=== PATIENT | female | born 1960 | race Caucasian/White ===

== ENCOUNTER → 2020-08-11 14:49 | Outpatient (CLI) | payer OTHER, SELFPAY ==
--- NOTE | 2020-08-11 | DI.ECHO.S_ITS ---
[facility]---------+ [facility] +---------+ : : [address] : [place] : : : : [id number] : : : : Phone: [phone] +---------+ Echocardiogram Report + + :Name: JULIO CRAWFORD Study Date: 08/11/2020 Height: 65 in : :[facility] ReadingLocation: Weight: 96 lb : : Gender: Female BSA: 1.4 m2 : :: 1960 Age: 60 yrs BP: 122/70 mmHg: :Reason For Study: CHRONIC SYSTOLIC HEART FAILURE : :Ordering Physician: DASHA, : :MICHAEL Performed By: Mona Monroe : :Referring: MICHAEL LOU : + + Interpretation Summary The left ventricle is moderately dilated. The ejection fraction is estimated to be 20-25%. No significant change in LVEF from the previous study. The right ventricle is normal size. Right ventricular systolic function is mildly reduced. There is severe mitral regurgitation. Severe mitral regurgitation. Mostly central regurgitation jet. Flow reversal noted in pulmonary veins consistent with significant mitral regurgitation. Mitral regurgitation appears to be secondary due to underlying dilated cardiomyopathy. No obvious mitral valve prolapse or flail leaflets seen. Compared to the prior echo study, there has been no change in the severity of mitral regurgitation. There is mild tricuspid regurgitation. Compared to the prior echo exam, there has been no change in TR severity. The right ventricular systolic pressure is estimated to be at least 28 mmHg based on an estimated right atrial pressure of 3 mm Hg. Procedure: A two-dimensional transthoracic echocardiogram with color flow and Doppler was performed in limited views only to assess ejection fraction, mitral regurgitation, pap and cvp.. The study quality was technically adequate. Comparison is made with the echocardiogram of 04/07/2020. The patient was in sinus rhythm with heart rates between 68-88 bpm during the exam. The patient had occasional PVCs during the exam. Left Ventricle: The left ventricle is moderately dilated. There is normal left ventricular wall thickness. There is no thrombus. The ejection fraction is estimated to be 20-25%. There has been no significant change since the previous exam. There is moderate to severe global hypokinesis of the left ventricle. Compared to the prior exam, the left ventricular wall motion has not changed. Right Ventricle: The right ventricle is normal size. Right ventricular systolic function is mildly reduced. This is unchanged compared to the previous study. Atria: The left atrium is severely dilated. There has been no significant change since the previous study. Right atrial size is normal. The right atrium has significantly decreased in size since the prior echo exam. Mitral Valve: The mitral valve leaflets appear borderline thickened, but open well. Tented mitral leaflets. There is severe mitral regurgitation. There are multiple regurgitant jets present. Flow reversal noted in pulmonary veins consistent with significant mitral regurgitation. Compared to the prior echo study, there has been no change in the severity of mitral regurgitation. Tricuspid Valve: The tricuspid valve is normal. There is mild tricuspid regurgitation. The right ventricular systolic pressure is estimated to be at least 28 mmHg based on an estimated right atrial pressure of 3 mm Hg. Compared to the prior echo exam, there has been no change in TR severity. Great Vessels: The IVC is of normal diameter and collapses greater than 50% with a sniff. This suggests a low right atrial pressure of 3 mm Hg. Pericardium/ Pleura There is no pericardial effusion. MMode/2D Measurements & Calculations LVIDd: 5.8 cm LA A2 area: 19.4 cm2 LVIDs: 5.1 cm LA A4 area: 21.9 cm2 FS: 11.9 % LA length (vol): 5.5 cm IVSd: 0.63 cm LA vol: 65.8 ml LVPWd: 0.83 cm LA vol index: 45.5 ml/m2 LV dye. diameter/BSA (cm/m^2): 4.0 LV sys. diameter/BSA (cm/m^2): 3.5 RA long axis: 4.1 cm RVD1 (basal): 2.3 cm RA area: 10.1 cm2 TAPSE: 1.6 cm RA vol: 21.5 ml RA : 14.9 ml/m2 IVC diam: 1.2 cm Doppler Measurements & Calculations MR ERO: 0.15 cm2 TR max josé miguel: 252.0 cm/sec TR max P.4 mmHg MR PISA: 2.4 cm2 MR flow rate: 83.3 cm3/sec MR PISA radius: 0.61 cm Reading Physician:04:12 PM
== END ==
PROVIDERS: PCP Internal Medicine; Referring Provider Internal Medicine Cardiovascular Disease; Visit Provider Internal Medicine Cardiovascular Disease
DX: I50.22 Chronic systolic (congestive) heart failure (principal)
CPT/HCPCS: 93307

== ENCOUNTER → 2021-05-13 13:00 | Outpatient (CLI) | payer OTHER, SELFPAY ==
--- NOTE | 2021-05-13 | DI.ECHO.S_ITS ---
[facility]---------+ [facility] +---------+ : : [address] : [place] [address] : : : : [id number] : : : : Phone: [phone] +---------+ Echocardiogram Report + + :Name: JULIO CRAWFORD Study Date: 05/13/2021 Height: 65 in : :[facility] : Weight: 93 lb : : Gender: Female BSA: 1.4 m2 : :: 1960 Age: 60 yrs BP: 104/60 mmHg: :Reason For Study: Chronic systolic congestive heart failure : :Ordering Physician: Michael : :Rudy Lou Performed By: Po Layton : :Referring: MICHAEL LOU : + + Interpretation Summary The left ventricle is normal in size and wall thickness. The ejection fraction is estimated to be 35-40%. Previous LV ejection fraction 20 to 25% with LV end-diastolic dimension 5.8 cm. In this study is 4.4 cm. The right ventricle is normal size. There is a pacemaker lead in the right ventricle. Patient has BiV AICD which is new. Right ventricular systolic function is borderline reduced. There is moderate to severe mitral regurgitation. Flow reversal noted in pulmonary veins consistent with significant mitral regurgitation. Compared to the prior echo study, there has been no significant change in the severity of mitral regurgitation. The right ventricular systolic pressure is estimated to be at least 24 mmHg based on an estimated right atrial pressure of 3 mm Hg. Procedure: A two-dimensional transthoracic echocardiogram with color flow and Doppler was performed. The study quality was technically adequate. Comparison is made with the echocardiogram of 08/11/2020. The patient has a paced rhythm. The patient was in normal sinus rhythm during the exam. The patient had occasional PVCs during the exam. Left Ventricle: The left ventricle is normal in size and wall thickness. There is no thrombus. The ejection fraction is estimated to be 35-40%. There is moderate global hypokinesis of the left ventricle. Right Ventricle: There is a pacemaker lead in the right ventricle. The right ventricle is normal size. Right ventricular systolic function is borderline reduced. Atria: The left atrium is severely dilated. The left atrium has remained unchanged in size since the prior echo exam. There is a catheter/pacemaker lead seen in the right atrium. Right atrial size is normal. There is no Doppler evidence for an interatrial shunt. Mitral Valve: The mitral valve leaflets appear mildly thickened, but open well. There is moderate to severe mitral regurgitation. Flow reversal noted in pulmonary veins consistent with significant mitral regurgitation. Compared to the prior echo study, there has been no change in the severity of mitral regurgitation. Aortic Valve: The aortic valve is trileaflet. The aortic valve opens well. The aortic valve is slightly calcified. There is no aortic valve stenosis. There is trace aortic regurgitation. Tricuspid Valve: The tricuspid valve is normal. There is trace tricuspid regurgitation. The right ventricular systolic pressure is estimated to be at least 24 mmHg based on an estimated right atrial pressure of 3 mm Hg. Compared to the prior echo exam, there has been a decrease in TR severity. Compared to the prior echo exam, there has been no change in the severity of pulmonary hypertension. Pulmonic Valve: The pulmonic valve is not well seen, but is grossly normal. There is a trace or physiologic amount of pulmonic regurgitation. Great Vessels: The aortic root is normal size. The ascending aorta could not be visualized. The aortic arch is normal in size. The IVC is of normal diameter and collapses greater than 50% with a sniff. This suggests a low right atrial pressure of 3 mm Hg. Pericardium/ Pleura There is no pericardial effusion. There is an anterior echo-free space consistent with a fat pad. There is no pleural effusion. MMode/2D Measurements & Calculations LVIDd: 4.4 cm LVOT diam: 1.8 cm LVIDs: 3.4 cm Ao root diam: 2.8 cm FS: 22.0 % Ao Arch Diam (Prox Trans): 2.0 cm IVSd: 0.77 cm LVPWd: 0.88 cm LV dye. diameter/BSA (cm/m^2): 3.1 LV sys. diameter/BSA (cm/m^2): 2.4 LA A2 area: 21.7 cm2 RA long axis: 4.4 cm LA A4 area: 18.7 cm2 RA area: 10.5 cm2 LA length (vol): 5.1 cm RA vol: 21.0 ml LA vol: 67.7 ml RA : 14.7 ml/m2 LA vol index: 47.4 ml/m2 IVC diam: 1.8 cm TAPSE: 1.7 cm Doppler Measurements & Calculations Ao V2 max: 126.9 cm/sec LVOT Max Boyd: 80.0 cm/sec Ao V2 mean: 99.5 cm/sec LV V1 max P.6 mmHg Ao max P.4 mmHg LV V1 VTI: 16.4 cm Ao mean P.2 mmHg JOSE(I,D): 1.5 cm2 Ao V2 VTI: 27.3 cm JOSE(V,D): 1.6 cm2 sev ratio: 0.60 JOSE indexed to BSA (cm^2/m^2): 1.0 MV E max boyd: 98.1 cm/sec TR max boyd: 228.9 cm/sec MV A max boyd: 99.4 cm/sec TR max P.0 mmHg MV E/A: 0.99 PA V2 max: 57.3 cm/sec MV dec time: 0.27 sec PA V2 mean: 46.1 cm/sec PA mean P.89 mmHg PA pr(Accel): 10.5 mmHg SV(LVOT): 40.8 ml Reading Physician:09:10 AM
== END ==
PROVIDERS: PCP Internal Medicine; Referring Provider Internal Medicine Cardiovascular Disease; Visit Provider Internal Medicine Cardiovascular Disease
DX: I34.0 Nonrheumatic mitral (valve) insufficiency (principal); I50.22 Chronic systolic (congestive) heart failure; Z95.0 Presence of cardiac pacemaker
CPT/HCPCS: 93306

== ENCOUNTER → 2023-08-17 14:38 | Outpatient (CLI) | payer OTHER, SELFPAY ==
--- NOTE | 2023-08-17 | DI.ECHO.S_ITS ---
[place] +---------+ [facility] : : [address] : : [place] : : [id number] : : Phone: [phone] Echocardiogram Report + + :Name: JULIO RCAWFORD Study Date: 08/17/2023 Height: 65 in : :[facility] ReadingLocation: Weight: 92 lb : : Gender: Female BSA: 1.4 m2 : :: 1960 Age: 63 yrs BP: 119/54 mmHg: :Reason For Study: DILATED CARDIOMYOPATHY : :Ordering Physician: JAMMIE, : :GUS Parsons Performed By: Buck Pugh : :Referring: GUS AGUDELO : + + Interpretation Summary The left ventricle is normal in size and wall thickness. Left ventricular ejection fraction is estimated to be 40 +/- 5%. Previously 35 to 40%. The right ventricle is normal in size and function. There is a pacemaker lead in the right ventricle. There is moderate mitral regurgitation. Previously moderate to severe MR. The right ventricular systolic pressure is estimated to be at least 29 mmHg based on an estimated right atrial pressure of 3 mm Hg. Procedure: A two-dimensional transthoracic echocardiogram with color flow and Doppler was performed. The study quality was technically adequate. Comparison is made with the echocardiogram of 05/13/2021. The patient was in normal sinus rhythm during the exam. The heart rate ranged between 68-83 bpm during the study. Left Ventricle: The left ventricle is normal in size and wall thickness. There is no thrombus. Left ventricular ejection fraction is estimated to be 40 +/- 5%. There is mild to moderate global hypokinesis of the left ventricle. Diastolic parameters suggest a relaxation abnormality of the left ventricle, consistent with probable normal filling pressures. Right Ventricle: The right ventricle is normal in size and function. There is a pacemaker lead in the right ventricle. The right ventricular systolic function is normal. Atria: The left atrium is mildly dilated. The left atrium has mildly decreased in size since the prior echo exam. Right atrial size is normal. The interatrial septum grossly appears intact with no obvious evidence for an atrial septal defect. Mitral Valve: The mitral valve leaflets appear mildly thickened, but open well. There is no mitral valve stenosis. There is moderate mitral regurgitation. There are multiple regurgitant jets present. Aortic Valve: The aortic valve is grossly normal. The aortic valve is trileaflet. The aortic valve opens well. The aortic valve is slightly calcified. There is no aortic valve stenosis. No aortic regurgitation is present. Tricuspid Valve: There is no tricuspid stenosis. The right ventricular systolic pressure is estimated to be at least 29 mmHg based on an estimated right atrial pressure of 3 mm Hg. There is trace tricuspid regurgitation. Compared to the prior echo exam, there has been no change in TR severity. Pulmonic Valve: The pulmonic valve is not well visualized. There is no pulmonic valvular stenosis. There is no pulmonic valvular regurgitation. Great Vessels: The aortic root is normal size. The ascending aorta could not be visualized. The aortic arch could not be visualized. The IVC is of normal diameter and collapses greater than 50% with a sniff. This suggests a low right atrial pressure of 3 mm Hg. Pericardium/ Pleura There is no pericardial effusion. There is no pleural effusion. MMode/2D Measurements & Calculations LVIDd: 4.5 cm LVOT diam: 1.8 cm LVIDs: 3.6 cm Ao root diam: 2.7 cm FS: 21.0 % IVSd: 0.71 cm LVPWd: 0.72 cm LV dye. diameter/BSA (cm/m^2): 3.2 LV sys. diameter/BSA (cm/m^2): 2.5 LA A2 area: 17.6 cm2 RA long axis: 4.2 cm LA A4 area: 13.8 cm2 RA area: 12.5 cm2 LA length (vol): 4.4 cm RA vol: 31.6 ml LA vol: 47.0 ml RA : 22.2 ml/m2 LA vol index: 33.1 ml/m2 IVC diam: 1.6 cm RVD1 (basal): 2.8 cm RVD2 (mid): 2.1 cm TAPSE: 1.9 cm Doppler Measurements & Calculations Ao V2 max: 131.7 cm/sec LVOT Max Boyd: 88.1 cm/sec Ao V2 mean: 92.2 cm/sec LV V1 max P.1 mmHg Ao max P.9 mmHg LV V1 VTI: 20.9 cm Ao mean P.7 mmHg JOSE(I,D): 1.9 cm2 Ao V2 VTI: 27.0 cm JOSE(V,D): 1.6 cm2 sev ratio: 0.77 JOSE indexed to BSA (cm^2/m^2): 1.3 MV E max boyd: 80.0 cm/sec TR max boyd: 254.2 cm/sec MV A max boyd: 98.3 cm/sec TR max P.0 mmHg MV E/A: 0.81 PA V2 max: 90.7 cm/sec Med Peak E' Boyd: 7.2 cm/sec PA V2 mean: 63.5 cm/sec E/E' med: 11.1 PA mean P.7 mmHg Lat Peak E' Boyd: 10.9 cm/sec PA pr(Accel): 15.6 mmHg E/E' lat: 7.3 E/e' average: 9.2 MV dec time: 0.22 sec SV(LVOT): 51.3 ml Reading Physician:04:22 PM
== END ==
PROVIDERS: PCP Nurse Practitioner Family; Referring Provider Nurse Practitioner; Visit Provider Nurse Practitioner
DX: I42.0 Dilated cardiomyopathy (principal); Z95.0 Presence of cardiac pacemaker; I34.0 Nonrheumatic mitral (valve) insufficiency
CPT/HCPCS: 93306